=== PATIENT | female | born 1935 | race Two or more races ===

== ENCOUNTER 2016-05-05 15:42 | Emergency (ER) | payer MEDICARE, OTHER ==
[~2016-05-05] VITALS: Wt 93.0 kg
[2016-05-05] MEDS ORDERED: CARV12.579 PO (17:38)
[2016-05-05 18:11] LABS: BASOPHILS % 0.4 % (0.0-2.0); EOSINOPHILS # 0.4 10^3/ul (0.0-0.5); EOSINOPHILS % 3.8 % (0.0-7.0); HEMATOCRIT 32.1 % (37.0-47.0); HEMOGLOBIN 10.5 g/dl (12.0-16.0); LYMPHOCYTES # 2.5 10^3/ul (0.8-2.9); LYMPHOCYTES % 24.6 % (15.0-51.0); MEAN CORPUSCULAR HEMOGLOBIN 22.2 pg (29.0-33.0); MEAN CORPUSCULAR HGB CONC 32.6 g/dl (32.0-37.0); MEAN CORPUSCULAR VOLUME 67.9 fl (82.0-101.0); MONOCYTE # 0.6 10^3/ul (0.3-0.9); MONOCYTES % 6.4 % (0.0-11.0); NEUTROPHIL # 6.5 10^3/ul (1.6-7.5); NEUTROPHILS % 64.8 % (39.0-77.0); PLATELET COUNT 204 10^3/UL (140-440); RED BLOOD COUNT 4.73 10^6/ul (4.20-5.40); RED CELL DISTRIBUTION WIDTH 16.2 % (11.5-14.5)
[2016-05-05 18:17] LABS: CONDITION 1; LH ANALYZER COMMENTS 1
[2016-05-05 18:19] LABS: ALBUMIN 3.9 g/dl (3.3-4.9); CHLORIDE 103 mmol/L (97-110)
[2016-05-05 18:20] LABS: INR 1.04; POTASSIUM 3.8 mmol/L (3.5-5.1); PROTIME 13.6 Sec (12.2-14.2); PT RATIO 1.1; SODIUM 143 mmol/L (135-144)
[2016-05-05 18:21] LABS: PARTIAL THROMBOPLASTIN TIME 34.9 Sec (25.0-35.0)
[2016-05-05 18:22] LABS: ALBUMIN/GLOBULIN RATIO 1.08; ALKALINE PHOSPHATASE 64 IU/L (42-121); ANION GAP 14 (8-16); ASPARTATE AMINO TRANSFERASE 11 IU/L (15-46); BILIRUBIN,INDIRECT 0.2 mg/dl (0-1.1); BILIRUBIN,TOTAL 0.2 mg/dl (0.2-1.3); BLOOD UREA NITROGEN 19 mg/dl (7-20); CARBON DIOXIDE 30 mmol/L (21-31); CREATININE 0.89 mg/dl (0.44-1.00); TOTAL PROTEIN 7.5 g/dl (6.1-8.1)
[2016-05-05 18:23] LABS: ALANINE AMINOTRANSFERASE 18 IU/L (13-69); CALCIUM 9.4 mg/dl (8.4-10.2); CREATINE KINASE 31 IU/L (23-200); GLUCOSE 114 mg/dl (70-220)
[2016-05-05 18:31] VITALS: BP 134/68; PULSE 78; RESP 20
[2016-05-05 18:31] LABS: CK-MB 0.51 ng/ml (0.0-2.4)
--- NOTE | 2016-05-05 18:31 | RADRPT ---
PROCEDURE: CT Chest without contrast. CLINICAL INDICATION: Right-sided chest pain TECHNIQUE: CT scan of the chest without contrast was performed on a multidetector high-resolution CT scanner. Coronal and sagittal reformatted images were obtained from the axial source images. The total exam CTDI equals 15.47 mGy and the total exam DLP equals 496.54 mGy-cm. One or more of the following dose reduction techniques were used: Automated exposure control. Adjustment of the mA and/or kV according to patient size. Use of iterative reconstruction technique. COMPARISON: None FINDINGS: There is approximately 1.3 cm mixed density nodule containing eccentric calcification in the right l sue base suggestive of a hamartoma. There is minimal scarring in the left lung base medially. Ther e is diffuse bronchial wall thickening in keeping with nonspecific chronic airway disease. There is no no acute pulmonary infiltrate. There is mosaic attenuation of the bilateral lungs. No mass lesio n to suggest neoplasm is identified. The central tracheobronchial tree is clear. The mediastinum is unremarkable without evidence for mass or lymphadenopathy. The vascular structur es of the mediastinum are normal in course and caliber. Aortic vascular calcifications and coronary artery calcifications are present. The heart size is mildly enlarged without evidence for pericard ial thickening or effusion. There is approximately 2.5 cm nodular mass in the inferior portion of the right breast. There is ap proximately 1.9 cm nodular mass in the medial inferior aspect of right breast.. The axillary region s, subpectoral regions, and supraclavicular regions are all unremarkable. Imaging obtained through the upper abdomen reveals no acute abnormality. There is approximately 2.5 cm left adrenal myelolip sowmya. The surrounding osseous structures are remarkable for degenerative spondylosis of the spine. No osteolytic or osteoblastic lesion is detected. IMPRESSION: 1. Approximately 2.5 cm nodular mass in the inferior lateral and 1.9 cm nodular mass in the inferio r medial right breast. Recommend dedicated breast imaging. 2. No acute infiltrates. 3. Diffuse bronchial wall thickening suggesting nonspecific chronic airway inflammation. 4. Benign pulmonary nodule in the right lung base hematoma versus granuloma. 5. Mild cardiomegaly. 6. Aortic and coronary artery calcifications. 7. Left adrenal myelolipoma. RPTAT: BB .Miguel James MD, MD Date Time Electronically viewed and signed by .Miguel James MD, MD on 05/05/2016 18:31 .O/
[2016-05-05 18:35] LABS: TROPONIN-I < 0.012 ng/ml (0.00-0.12)
--- NOTE | 2016-05-05 19:07 | ERD ---
ER Documentation Chief Complaint Date/Time DATE: 05/05/16 TIME: 18:56 Chief Complaint cough congestion and getting worse with sob. no cp . pain to r upper back HPI This is an 80-year-old female with past medical history of hypertension. Over the past 2 weeks the patient had a productive cough, rhinorrhea, sneezing and contrary to the triage note the patient has not had any shortness of breath. The patient had not seen a primary care physician or been to the emergency department as her granddaughter stated she does not like to go to doctors. She indicates that her flulike symptoms have improved and her main reason for coming to the emergency department today is pain over her right scapula. The patient ambulates with a cane as she has arthritis. She uses her cane on the right-hand side when she ambulates she is right-handed dominant. She states that the pain is a dull achy sensation and is exacerbated by movement whenever she lifts her right upper extremity. She has not taken any analgesic medication for the right scapular pain. She denies any swelling of her lower extremities. She denies any prolonged immobilization or recent travel and no recent hospitalizations. She has remained afebrile with no shaking or chills. She has no chest pain or pressure that radiates to the neck or back or jaw. Her granddaughter indicates the main reason for coming to the emergency department today as they would like to obtain a radiograph to make sure that there is not an underlying pneumonia. The patient did not take any antibiotics. ROS All systems reviewed and are negative except as per history of present illness. Medications Home Meds Reported Medications Carvedilol* (Carvedilol*) 12.5 Mg Tablet, 12.5 MG PO BID, #60 TAB 05/05/16 Allergies Allergies: Coded Allergies: No Known Allergy (Unverified , 05/05/16) PMhx/Soc Medical and Surgical Hx: pt denies Medical Hx, pt denies Surgical Hx Hx Alcohol Use: No Hx Substance Use: No Smoking Status: Never smoker Physical Exam Vitals Vital Signs Date Time Temp Pulse Resp B/P Pulse Ox O2 Delivery O2 Flow Rate FiO2 05/05/16 18:31 78 20 134/68 98 Room Air 05/05/16 15:49 98.8 75 24 142/67 96 Physical Exam Constitutional:Well-developed. Well-nourished. HEENT:Normocephalic. Atraumatic.Pupils were equal round reactive to light. Moist mucous membranes.No tonsillar exudates. Neck: No nuchal rigidity. No lymphadenopathy. No posterior cervical spine tenderness or step-offs. Respiratory: Not using accessory muscles of respiration.Lungs were clear to auscultation bilaterally. No rhonchi. No rales. No wheezing. Cardiovascular: Regular rate regular rhythm.No murmurs. No rubs were appreciated.S1, S2 normal. Distal pulses are palpable 2+ bilaterally. GI: Abdomen was soft. Nontender. Non Distended. No pulsatile abdominal masses or bruits. No rebound. No guarding. Bowel sounds were present and normal. Muscle skeletal: Full range of motion of both the upper and lower extremities bilaterally.Normal muscle tone.No assymetrical calf tenderness or swelling. Patient a full range of motion of the bilateral upper extremities. Patient was able to AB duct the right upper extremity past 90. Reproducible tenderness over the right scapula with no obvious bony deformities. Skin: No petechia, no purpura. No lesions on the palms or the soles of the feet. No maculopapular rash. NEURO: Patient was alert, awake, orientated x3.No facial droop. Gait observed and normal with no ataxia.Speech had regular rate and rhythm. No focal neurological deficits. Handgrip equal and symmetrical bilaterally. Sensation intact over the radial ulnar and median nerve distribution as well as the axillary nerve of the bilateral upper extremities Result Diagram: 05/05/16 1755 05/05/16 1755 Results 24 hrs Laboratory Tests Test 05/05/16 17:55 Activated Partial Thromboplast Time 34.9Sec Alanine Aminotransferase (ALT/SGPT) 18IU/L Albumin 3.9g/dl Albumin/Globulin Ratio 1.08 Alkaline Phosphatase 64IU/L Anion Gap 14 Aspartate Amino Transf (AST/SGOT) 11IU/L Basophils # 0.010^3/ul Basophils % 0.4% Blood Morphology Comment Blood Urea Nitrogen 19mg/dl Calcium Level 9.4mg/dl Carbon Dioxide Level 30mmol/L Chloride Level 103mmol/L Creatine Kinase 31IU/L Creatine Kinase Index 1.6 Creatinine 0.89mg/dl Creatinine Kinase MB (Mass) 0.51ng/ml Direct Bilirubin 0.00mg/dl Eosinophils # 0.410^3/ul Eosinophils % 3.8% Globulin 3.60g/dl Glucose Level 114mg/dl Hematocrit 32.1% Hemoglobin 10.5g/dl INR International Normalized Ratio 1.04 Indirect Bilirubin 0.2mg/dl Lymphocytes # 2.510^3/ul Lymphocytes % 24.6% Mean Corpuscular Hemoglobin 22.2pg Mean Corpuscular Hemoglobin Concent 32.6g/dl Mean Corpuscular Volume 67.9fl Mean Platelet Volume 9.0fl Monocytes # 0.610^3/ul Monocytes % 6.4% Neutrophils # 6.510^3/ul Neutrophils % 64.8% Nucleated Red Blood Cells # 0.010^3/ul Nucleated Red Blood Cells % 0.0/100WBC Platelet Count 31119^3/UL Potassium Level 3.8mmol/L Prothrombin Time 13.6Sec Prothrombin Time Ratio 1.1 Red Blood Count 4.7310^6/ul Red Cell Distribution Width 16.2% Sodium Level 143mmol/L Total Bilirubin 0.2mg/dl Total Protein 7.5g/dl Troponin I < 0.012ng/ml White Blood Count 10.010^3/ul Procedures/MDM This patient presented to the emergency department with reproducible right scapular pain as well as flulike symptoms for the past 2 weeks. However the flulike symptoms had resolved. I obtained ancillary laboratory work which showed no leukocytosis. There is no lateralized abnormalities. I did obtain a CT scan of the chest without contrast which showed the followin. Approximately 2.5 cm nodular mass in the inferior lateral and 1.9 cm nodular mass in the inferior medial right breast. Recommend dedicated breast imaging. 2. No acute infiltrates. 3. Diffuse bronchial wall thickening suggesting nonspecific chronic airway inflammation. 4. Benign pulmonary nodule in the right lung base hematoma versus granuloma. 5. Mild cardiomegaly. 6. Aortic and coronary artery calcifications. 7. Left adrenal myelolipoma. The granddaughter stated that the patient had a mammogram 2 months ago and was instructed to come back due to some abnormal findings. They will reschedule the mammogram to further evaluate the nodular mass that was incidentally found on the CT scan. There did not appear to be an infectious process such as pneumonia. There is no scapular fracture. I did feel this was likely muscle skeletal injury and that the patient could be treated with anti-inflammatories. The patient was discharged home in fair condition. They were instructed to return to the emergency department at any time if there was any worsening of their condition. The patient stated they would follow up with their PCP in the next 24-48 hours to initiate a suitable medication regimen under the care of their PCP as well as to allow their PCP to monitor any drug reactions. The patient was discharged home with prescriptions after they gave informed consent to the new medication. They were also fully informed by myself on the adverse effects and adverse drug interactions in order to provide adequate safeguards to prevent possible adverse reactions to medications. Departure Diagnosis: Primary Impression: Muscle strain of right scapular region Encounter type: initial encounter Qualified Code: S46.911A - Muscle strain of right scapular region, initial encounter Additional Impression: Breast mass, right Condition: Fair Patient Instructions: Arthralgia, Breast Mass, Uncertain Cause RAY WEAVER May 05, 2016 19:06
== END 2016-05-05 18:58 | disposition home or self-care (01) ==
LOC: E/R 15:42
DX: S46.911A Strain of unspecified muscle, fascia and tendon at shoulder and upper arm level, right arm, initial encounter (principal); N63 Unspecified lump in breast; I10 Essential (primary) hypertension; R40.2142 Coma scale, eyes open, spontaneous, at arrival to emergency department; R40.2252 Coma scale, best verbal response, oriented, at arrival to emergency department; R40.2362 Coma scale, best motor response, obeys commands, at arrival to emergency department; R07.9 Chest pain, unspecified; X58.XXXA Exposure to other specified factors, initial encounter; Y92.9 Unspecified place or not applicable
CPT/HCPCS: 71250; 80053; 82550; 82553; 84484; 85025; 85610; 85730; 93005

== ENCOUNTER 2017-05-31 16:18 | Emergency (ER) | END 2017-05-31 19:30 | disposition home or self-care (01) ==